=== PATIENT | female | born 1950 | race African-American/Black ===

== ENCOUNTER 2018-01-20 11:17 | Inpatient (IN) | payer OTHER ==
[~2018-01-20] VITALS: Ht 167.6 cm; Wt 83.5 kg
[2018-01-20 11:20] VITALS: BP 132/87
--- NOTE | 2018-01-20 11:49 | NUR ---
DR SANDHU AT BEDSIDE FOR PT EVALUATION
--- NOTE | 2018-01-20 11:50 | NUR ---
PATIENT PRESENTS TO ED WITH ABD PAIN W/ DIARRHEA AND NAUSEA BUT DENIES VOMITTING; DENIES FEVER X 1 WEEK . SKIN IS PINK/WARM/DRY; AAOX4 WITH EVEN AND STEADY GAITVSS; PATIENT POSITIONED FOR COMFORT; HOB ELEVATED; BEDRAILS UP X2; BED DOWN. ER MD MADE AWARE OF PT STATUS.
[2018-01-20] MEDS ORDERED: NACL 0.9% 1,000 ML IV ONE (11:53)
[2018-01-20] MEDS ORDERED: NACL 0.9% 2,000 ML IV SCH (11:53)
[2018-01-20] MEDS ORDERED: ONDANSETRON 4 MG/2 ML VIAL IVP ONE (11:55)
[2018-01-20] MEDS ORDERED: METOCLOPRAMIDE 10 MG/2 ML INJ VIAL IVP ONE (11:55)
[2018-01-20] MEDS ORDERED: diphenhydrAMINE 50 MG/ML VIAL IVP ONE (11:55)
[2018-01-20 12:13] LABS: BASOPHILS % (AUTO) 0.6 % (0.0-2.0); EOSINOPHILS % (AUTO) 0.1 % (0.0-4.0); HEMATOCRIT 41.5 % (36-48); HEMOGLOBIN 13.4 g/dL (12.0-16.0); LYMPHOCYTES # (AUTO) 0.8 K/uL (2.5-16.5); LYMPHOCYTES % (AUTO) 10.9 % (20.5-51.1); MEAN CORPUSCULAR HEMOGLOBIN 29 pg (27-31); MEAN CORPUSCULAR HGB CONC 32 g/dL (33-37); MONOCYTES # (AUTO) 0.2 K/uL (0.8-1.0); MONOCYTES % (AUTO) 3.1 % (1.7-9.3); NEUTROPHILS # (AUTO) 6.5 K/uL (1.8-7.7); NEUTROPHILS % (AUTO) 85.3 % (42.2-75.2); PLATELET COUNT (AUTO) 326 K/uL (140-450); RED BLOOD CELL COUNT(AUTO) 4.66 MIL/uL (4.20-5.40); RED CELL DISTRIBUTION WIDTH 15.3 % (11.6-13.7); WHITE BLOOD COUNT (AUTO) 7.7 K/uL (4.8-10.8)
[2018-01-20 12:26] LABS: ACETONE, SERUM NEGATIVE (NEGATIVE)
[2018-01-20 12:28] LABS: ANION GAP 13.1 (8-16); CARBON DIOXIDE 27.3 mmol/L (21-32); CREATININE 0.9 mg/dL (0.6-1.3); POTASSIUM 3.4 mmol/L (3.5-5.1)
[2018-01-20] MEDS ORDERED: MULT15LI1 GT/PO (12:28)
[2018-01-20] MEDS ORDERED: PRED20TA6 PO (12:28)
[2018-01-20] MEDS ORDERED: ZOLP10TA1 PO (12:28)
[2018-01-20] MEDS ORDERED: ACET-2619 PO (12:28)
[2018-01-20] MEDS ORDERED: DICL1GEL19 TP (12:28)
[2018-01-20] MEDS ORDERED: DOCU250S85 PO (12:28)
[2018-01-20] MEDS ORDERED: HYDR-5092 PO (12:28)
[2018-01-20] MEDS ORDERED: DILT-135 PO (12:28)
[2018-01-20] MEDS ORDERED: LID5T TP (12:28)
[2018-01-20] MEDS ORDERED: ISOS20TA13 PO (12:28)
[2018-01-20] MEDS ORDERED: HYDR1TAB PO (12:28)
[2018-01-20] MEDS ORDERED: METO25TA PO (12:28)
[2018-01-20] MEDS ORDERED: FURO-572 PO (12:28)
[2018-01-20] MEDS ORDERED: CLOP75TA55 PO (12:28)
[2018-01-20] MEDS ORDERED: FLUT1POW3 IH (12:28)
[2018-01-20] MEDS ORDERED: ACLI400A1 IH (12:28)
[2018-01-20] MEDS ORDERED: ALBU3SOL83 IH (12:28)
[2018-01-20] MEDS ORDERED: DONE5TAB6 PO (12:28)
[2018-01-20] MEDS ORDERED: ATOR40TA PO (12:28)
[2018-01-20] MEDS ORDERED: NITR0.4T2 SL (12:28)
[2018-01-20] MEDS ORDERED: FAMO-90 PO (12:28)
[2018-01-20 12:33] LABS: ALBUMIN 3.4 g/dL (3.4-5.0); PROTHROMBIN TIME 9.8 secs (10.8-13.4); TOTAL BILIRUBIN 0.7 mg/dL (0.0-1.0)
[2018-01-20 12:34] LABS: AMYLASE 59 U/L (25-115); LIPASE 137 U/L (73-393); MAGNESIUM 2.1 mg/dL (1.8-2.4)
[2018-01-20] MEDS ORDERED: DEXT 5% /NACL 0.9% 1,000 ML IV SCH (13:03)
[2018-01-20] MEDS ORDERED: ZOLPIDEM 5 MG TAB PO PRN (13:05)
[2018-01-20] MEDS ORDERED: ONDANSETRON 4 MG/2 ML VIAL IM/IVP PRN (13:05)
[2018-01-20] MEDS ORDERED: ACETAMINOPHEN 325 MG TAB PO PRN (13:05)
[2018-01-20] MEDS ORDERED: DOCUSATE SODIUM 100 MG GELCAP PO PRN (13:05)
[2018-01-20] MEDS ORDERED: KETOROLAC 15 MG/ML VIAL IVP PRN (13:05)
[2018-01-20] MEDS ORDERED: ALBUTEROL SULFATE/IPRATROPIU 3 ML SOL IH PRN (13:15)
[2018-01-20] MEDS ORDERED: DEXTROSE 50% 50 ML SYR IVP PRN (13:20)
[2018-01-20] MEDS ORDERED: INSULIN LISPRO SLIDING SCALE 100 UNITS/ML VIAL SUBQ PRN (13:20)
[2018-01-20] MEDS ORDERED: DICYCLOMINE HCL LIQUID 10 MG/5 ML UDC PO SCH (13:23)
[2018-01-20] MEDS ORDERED: LIDOCAINE VISCOUS 2% 20 ML UDC PO SCH (13:23)
[2018-01-20] MEDS ORDERED: ALUMINUM HYD/MAG/SIMETHICONE 30 ML UDC PO SCH (13:23)
[2018-01-20] MEDS ORDERED: HYDROcodone/APAP 10/325 MG 1 TAB TAB PO PRN (13:30)
[2018-01-20] MEDS ORDERED: DICLOFENAC SODIUM TP SCH (13:30)
[2018-01-20] MEDS ORDERED: ZOLPIDEM 10 MG TAB PO PRN (13:30)
[2018-01-20] MEDS ORDERED: GABA300C PO (13:41)
--- NOTE | 2018-01-20 13:44 | NUR ---
RECEIVED BEDSIDE REPORT FROM ER NURSE. PATIENT IS AWAKE, ALERT AND ORIENTEDX4. NO SIGNS OF DISTRESS ON RA. NO COMPLAINTS OF ABD PAIN AT THIS TIME. PATIENT PLACED ON FALL RISK PROTOCOL. MRSA SWAB IS DONE. VITALS WITHIN NORMAL LIMITS. SKIN IS INTACT. IV ON LT AC 24G INFUSING NS AT 100. AND R AC 22G SALINE LOCK. CLEAN, DRY AND INTACT. DR DAVALOS SAID NOT TO GIVE ORDERED 2L BOLUS D/T HX CHF. AMBULATE W ASSIST, PATIENT HAS WEAKNESS. PATIENT ONLY AMBULATES FOR BRP. BED IN LOW POSITION. CALL LIGHT WITHIN REACH. WILL CONTINUE TO MONITOR. ALLERGY BAND PLACE. PATIENT HAS RT CHEST OLGA CATH, PATIENT STATES IT IS FOR BEING A HARD STICK. ER DID NOT USE IT, NO ORDER TO USE CATH AT THIS TIME
[2018-01-20 13:50] VITALS: BP 127/70
--- NOTE | 2018-01-20 13:52 | NUR ---
Patient will be admitted to care of dr ELISE. Admited to TELE. Will go to [id number]. Belongings list completed. Report to DARWIN MANRIQUEZ.
[2018-01-20] MEDS ORDERED: PANTOPRAZOLE 40 MG INJ VIAL IVP SCH (14:00)
[2018-01-20] MEDS ORDERED: MENTHOL/METHYL 10%-15% 114 GM TUBE TP PRN (14:15)
--- NOTE | 2018-01-20 14:52 | NUR ---
PATIENT IS SLEEPING. PATIENT REFUSED GI COCKTAIL, SHE HAD A SIP AND SAID IT WAS DISGUSTING. DR DAVLAOS IS AWARE.
[2018-01-20 15:22] LABS: CHOL/HDL RATIO 1.9 (1-4.5); PHOSPHORUS 2.4 mg/dL (2.5-4.9); THYROID STIMULATING HORMONE 0.39 uIU/mL (0.34-3.74)
[2018-01-20 16:00] VITALS: BP 109/63
--- NOTE | 2018-01-20 16:00 | NUR ---
PATIENT IS SLEEPING. WILL CONTINUE TO MONITOR THE PATIENT
[2018-01-20] MEDS: BLOOD GLUCOSE MONITORING 1 DEV DEV FS SCH ×2 (17:07→20:23)
[2018-01-20] MEDS: GABAPENTIN 300 MG CAP PO SCH (17:16)
[2018-01-20] MEDS: MORPHINE SULFATE 4 MG/ML SYR IVP PRN (17:16)
[2018-01-20] MEDS: DILTIAZEM 60 MG TAB PO SCH (17:16)
--- NOTE | 2018-01-20 17:22 | NUR ---
ADMINISTERED MEDS. PATIENT TOLERATED WELL. PATIENT COMPLAINTS OF 7/10 ABD PAIN. ADMINISTERED PRN PAIN MEDS. WILL CONTINUE TO MONITOR
[2018-01-20] MEDS: ALBUTEROL SULFATE/IPRATROPIU 3 ML SOL IH SCH (18:22)
[2018-01-20] MEDS ORDERED: LIDOCAINE MPF IV ONE ×6 (18:50)
[2018-01-20] MEDS ORDERED: NACL 0.9% IV ONE ×6 (18:50)
[2018-01-20] MEDS ORDERED: POTASSIUM CHLORIDE IV ONE ×6 (18:50)
--- NOTE | 2018-01-20 19:00 | NUR ---
GAVE BEDSIDE REPORT TO BI TECHNICAL LEAD NURSE. PATIENT ENDORSED IN STABLE CONDITION.
[2018-01-20] MEDS ORDERED: KCL 20 MEQ/WATER INJ PREMIX 100 ML IV ONE (19:10)
--- NOTE | 2018-01-20 19:10 | NUR ---
RECEIVED PATIENT AWAKE RESTING ON BED. EXPLAIN PLAN OF CARE AND VERBALIZED UNDERSTANDING. FALL PRECAUTION APPLIED. CALL LIGHT WITHIN REACH. WILL CONTINUE TO MONITOR.
[2018-01-20 20:00] VITALS: BP 97/56
[2018-01-20] MEDS: DEXT 5% / NACL 0.45% 1,000 ML IV SCH (21:00)
--- NOTE | 2018-01-20 21:00 | NUR ---
SCHEDULE MEDICATION GIVEN TOLERATED WELL. BS TAKEN AND RECORDED. NO COVERAGE PER SLIDING SCALE. NO S/S OF DISTRESS NOTED AT THIS TIME. [address] ALL NEEDS ATTENDED. WILL CONTINUE TO MONITOR.
[2018-01-20] MEDS: ATORVASTATIN 20 MG TAB PO SCH (21:01)
[2018-01-21] VITALS: BP 121/65
--- NOTE | 2018-01-21 | NUR ---
SEEN PATIENT ASLEEP ON BED. V/S TAKEN AND RECORDED. ALL NEEDS ATTENDED. FALL PRECAUTION APPLIED. WILL CONTINUE TO MONITOR. NO S/ SOF DISTRESS NOTED.
[2018-01-21] MEDS: HYDROcodone/APAP 10/325 MG 1 TAB TAB PO PRN ×2 (01:15→06:34)
--- NOTE | 2018-01-21 02:00 | NUR ---
SEEN PATIENT ASLEEP ON BED. NO S/S OF DISTRESS NOTED. FALL PRECAUTION IN PLACE. ALL NEEDS ATTENDED. CALL LIGHT WITHIN REACH.
[2018-01-21 04:00] VITALS: BP 111/66
--- NOTE | 2018-01-21 04:47 | NUR ---
AM CARE DONE. ALL NEEDS ATTENDED. NO S/S OF DISTRESS NOTED AT THIS TIME. WILL CONTINUE TO MONITOR.
[2018-01-21] MEDS: DEXT 5% / NACL 0.45% 1,000 ML IV SCH ×2 (06:30→23:05)
[2018-01-21] MEDS: ALBUTEROL SULFATE/IPRATROPIU 3 ML SOL IH SCH ×4 (06:51→19:47)
[2018-01-21] MEDS: BLOOD GLUCOSE MONITORING 1 DEV DEV FS SCH ×4 (06:55→20:08)
--- NOTE | 2018-01-21 07:15 | NUR ---
AM CARE DONE. ALL NEEDS ATTENDED. NO S/S OF DISTRESS NOTED AT THIS TIME. WILL CONTINUE TO MONITOR.
--- NOTE | 2018-01-21 07:16 | NUR ---
RECEIVED BEDSIDE REPORT FROM MANAGEMENT SME NURSE. PATIENT IS AWAKE, ALERT AND ORIENTEDX4. NO SIGNS OF DISTRESS ON 2L NC. SHE IS BEDBOUND. SKIN INTACT. TELE MONITOR IN PLACE. L AC 24G INFUSING D5 1/2NS AT 60. CLEAN, DRY AND INTACT. PATIENT NPO, SIGNS POSTED. ALLERGY BAND IN PLACE. PATIENT SAID SHE WILL LET ME KNOW WHEN SHE URINATES SO I CAN GET A URINE SAMPLE, I TOLD HER IF SHE IS NOT ABLE TO I MIGHT HAVE TO DO A STRAIGHT CATH. PATIENT VERBALIZES UNDERSTANDING. PATIENT IS INCONTINENT BUT STATES SHE CAN SOMETIMES TELL US WHEN SHE USES THE RESTROOM. BED IN LOW POSITION. FALL PRECAUTIONS IN PLACE. PATIENT HAS A R CHEST PORT A CATH, NO ORDERS TO USE THE CATH. PATIENT CAME IN W IT. WILL CONTINUE TO MONITOR
[2018-01-21 07:55] VITALS: BP 121/66
[2018-01-21 08:03] LABS: CARBON DIOXIDE 25.3 mmol/L (21-32); CREATININE 0.8 mg/dL (0.6-1.3); MAGNESIUM 2.1 mg/dL (1.8-2.4); POTASSIUM 4.3 mmol/L (3.5-5.1)
[2018-01-21 08:12] LABS: T4 (THYROXINE) 9.1 ug/dL (4.5-12.0)
[2018-01-21] MEDS: GABAPENTIN 300 MG CAP PO SCH ×3 (08:55→17:57)
[2018-01-21] MEDS: MORPHINE SULFATE 4 MG/ML SYR IVP PRN ×3 (08:55→17:57)
[2018-01-21] MEDS: FUROSEMIDE 20 MG TAB PO SCH (08:56)
[2018-01-21] MEDS: CLOPIDOGREL 75 MG TAB PO SCH (08:56)
[2018-01-21] MEDS: ISOSORBIDE MONONITRATE 30 MG TABER PO SCH (08:57)
[2018-01-21] MEDS: DONEPEZIL 10 MG TAB PO SCH (08:58)
[2018-01-21] MEDS: DILTIAZEM 60 MG TAB PO SCH ×3 (08:58→17:00)
[2018-01-21] MEDS ORDERED: DILTIAZEM 120 MG CAPER PO SCH (09:00)
[2018-01-21 09:03] LABS: BASOPHILS % (AUTO) 0.5 % (0.0-2.0); EOSINOPHILS # (AUTO) 0.1 K/uL (0-0.4); HEMATOCRIT 35.6 % (36-48); HEMOGLOBIN 11.5 g/dL (12.0-16.0); LYMPHOCYTES # (AUTO) 2.5 K/uL (2.5-16.5); LYMPHOCYTES % (AUTO) 42.4 % (20.5-51.1); MEAN CORPUSCULAR HEMOGLOBIN 29 pg (27-31); MEAN CORPUSCULAR HGB CONC 32 g/dL (33-37); MEAN CORPUSCULAR VOLUME 89.4 fL (80-94); MONOCYTES # (AUTO) 0.5 K/uL (0.8-1.0); MONOCYTES % (AUTO) 9.2 % (1.7-9.3); NEUTROPHILS # (AUTO) 2.8 K/uL (1.8-7.7); NEUTROPHILS % (AUTO) 46.9 % (42.2-75.2); PLATELET COUNT (AUTO) 266 K/uL (140-450); RED BLOOD CELL COUNT(AUTO) 3.98 MIL/uL (4.20-5.40); WHITE BLOOD COUNT (AUTO) 5.9 K/uL (4.8-10.8)
[2018-01-21] MEDS: PANTOPRAZOLE 40 MG INJ VIAL IVP SCH (09:04)
[2018-01-21] MEDS: LIDOCAINE 5% 1 EA PATCH TP SCH (09:08)
[2018-01-21] MEDS: MULTIVITAMIN/MINERALS 15 ML UDBTL PO SCH (09:08)
--- NOTE | 2018-01-21 09:24 | NUR ---
ADMINISTERED MEDS. PATIENT TOLERATED WELL. WILL CONTINUE TO MONITOR THE PATIENT.
--- NOTE | 2018-01-21 09:43 | NUR ---
STRAIGHT CATH DONE. URINE SENT TO LAB.
--- NOTE | 2018-01-21 10:30 | NUR ---
HEATING PAD ON PATIENTS R KNEE
[2018-01-21 12:00] VITALS: BP 114/51
[2018-01-21 12:20] LABS: BARBITURATE, URINE NEG. ng/ml (NEG <=200); BENZODIAZEPINE, URINE NEG. ng/mL (NEG <=200); CANNABINOID, URINE NEG. ng/mL (NEG <=50); COCAINE, URINE NEG. ng/mL (NEG <=300); OPIATE, URINE POS. ng/mL (NEG <=2000); PHENCYCLIDINE SCREEN,URINE NEG. ng/mL (NEG <=25)
[2018-01-21 12:31] LABS: APPEARANCE,URINE CLEAR (CLEAR); BILIRUBIN,URINE NEGATIVE (NEGATIVE); BLOOD, URINE 1+ (NEGATIVE); COLOR,URINE YELLOW (YELLOW); LEUKOCYTE ESTERASE ,URINE NEGATIVE (NEGATIVE); NITRITE, URINE NEGATIVE (NEGATIVE); RBC,URINE 3-10 (FEW) /HPF (0-5); UGLUCOSE NEGATIVE (NEGATIVE); WBC,URINE 0-5 (RARE) /HPF (0-5)
--- NOTE | 2018-01-21 12:55 | NUR ---
ADMINISTERED MEDS INCLUDING PRN PAIN MED. PATIENT TOLERATED WELL. WILL CONTINUE TO MONITOR THE PATIENT. HEATING PAD TEMP INCREASED.
--- NOTE | 2018-01-21 14:01 | NUR ---
DR BARBOZA SAW PATIENT. SAID HE IS NOT DOING ANYTHING TO HER TODAY. SHE CAN EAT. ORDERED PATIENT A SANDWICH
--- NOTE | 2018-01-21 14:07 | NUR ---
PATIENT HAS BEEN SCREENED AND CATEGORIZED MODERATE NUTRITION RISK. PATIENT WILL BE SEEN WITHIN 3-5 DAYS OF ADMISSION. 01/23/18 01/25/18 CHARLI CANNON MBA, RD
[2018-01-21 16:00] VITALS: BP 102/58
--- NOTE | 2018-01-21 16:00 | NUR ---
PATIENT REQUESTING WATERMELON AND GRAPES, EXPLAINED TO HER SHE IS ON FULL LIQ DIET, PATIENT VERBALIZED UNDERSTANDING
[2018-01-21] MEDS ORDERED: SENNA 8.6 MG TAB PO SCH (17:00)
--- NOTE | 2018-01-21 17:15 | NUR ---
PATIENT WATCHING TV. NO SIGNS OF DISTRESS. WILL CONTINUE TO MONITOR
--- NOTE | 2018-01-21 18:00 | NUR ---
ADMINISTERED MEDS. PATIENT TOLERATED WELL. WILL CONTINUE TO MONITOR THE PATIENT. Addendum: 01/21/18 at 1813 by Maribel Willard RN LINDEN HANDLEY D/T B/P ON LOW END. DR DAVALOS SAID OK. PATIENT GETTING MORPHINE FOR PAIN AT THIS TIME
--- NOTE | 2018-01-21 19:17 | NUR ---
BEDSIDE REPORT GIVEN TO WEIGHER AND GRADER NURSE. PATIENT IN STABLE CONDITION.
--- NOTE | 2018-01-21 19:20 | NUR ---
RECEIVED PATIENT AWAKE RESTING COMFORTABLE ON BED. EXPLAINED PLAN OF CARE AND VERBALIZED UNDERSTANDING. FALL PRECAUTION APPLIED. CALL LIGHT WITHIN REACH. WILL CONTINUE TO MONITOR.
[2018-01-21 20:00] VITALS: BP 102/53
[2018-01-21] MEDS: ATORVASTATIN 20 MG TAB PO SCH (20:42)
[2018-01-21] MEDS ORDERED: AMITRIPTYLINE 10 MG TAB PO SCH (21:00)
[2018-01-21] MEDS ORDERED: LACTULOSE 20 GM/30 ML UDC PO SCH (21:00)
--- NOTE | 2018-01-21 21:00 | NUR ---
V/S TAKEN AND RECORDED. SCHEDULE MEDICATION GIVEN TOLERATED WELL. NO SIGN OF DISTRESS NOTED. ALL NEEDS ATTENDED. CALL LIGHT WITHIN REACH. DENIES PAIN AT THIS TIME. WILL CONTINUE TO MONITOR.
[2018-01-22] VITALS: BP 109/63
--- NOTE | 2018-01-22 | NUR ---
V/S TAKEN AND RECORDED. ALL NEEDS ATTENDED. NO S/S OF DISTRESS NOTED AT THIS TIME. WILL CONTINUE TO MONITOR.
--- NOTE | 2018-01-22 02:00 | NUR ---
DENIES PAIN. [address] NO SIGN OF DISTRESS NOTED.
[2018-01-22] MEDS: HYDROcodone/APAP 10/325 MG 1 TAB TAB PO PRN ×2 (03:18→12:42)
[2018-01-22 04:00] VITALS: BP 113/64
--- NOTE | 2018-01-22 04:05 | NUR ---
V/S TAKEN AND RECORDED. PATIENT ASKED TO APPLY HEAT PAD ON HER RIGHT LEG AND APPLIED BENGAY. WILL CONTINUE TO MONITOR.
--- NOTE | 2018-01-22 07:10 | NUR ---
ENDORSEMENT GIVEN TO AM SHIFT RN AT BEDSIDE FOR CONTINUITY OF CARE. PATIENT IN STABLE CONDITION.
--- NOTE | 2018-01-22 07:30 | NUR ---
RECEIVED BEDSIDE REPORT FROM DRUM OPERATOR RN AT BEDSIDE. PATIENT IS AAOX4. NO S/S OF RESPIRATORY DISTRESS ON 2L O2 VIA NC. NO C/O PAIN AT THIS TIME. IV ON LT AC 24G INFUSING D5 1/2NS AT 60ML/HR, ASYMPTOMATIC. NO EDEMA NOTED. PT AMBULATE BRP W/ ASSIST. BED IN LOWEST POSITION. CALL LIGHT WITHIN REACH. WILL CONTINUE TO MONITOR.
[2018-01-22] MEDS: BLOOD GLUCOSE MONITORING 1 DEV DEV FS SCH ×4 (07:34→21:45)
[2018-01-22 08:00] VITALS: BP 104/54
[2018-01-22 08:27] LABS: BASOPHILS # (AUTO) 0.1 K/uL (0.00-0.22); BASOPHILS % (AUTO) 1.2 % (0.0-2.0); EOSINOPHILS # (AUTO) 0.1 K/uL (0-0.4); EOSINOPHILS % (AUTO) 1.4 % (0.0-4.0); HEMATOCRIT 41.4 % (36-48); HEMOGLOBIN 13.2 g/dL (12.0-16.0); LYMPHOCYTES # (AUTO) 2.8 K/uL (2.5-16.5); LYMPHOCYTES % (AUTO) 43.4 % (20.5-51.1); MEAN CORPUSCULAR HEMOGLOBIN 29 pg (27-31); MEAN CORPUSCULAR HGB CONC 32 g/dL (33-37); MEAN CORPUSCULAR VOLUME 89.8 fL (80-94); MONOCYTES # (AUTO) 0.4 K/uL (0.8-1.0); MONOCYTES % (AUTO) 5.9 % (1.7-9.3); NEUTROPHILS # (AUTO) 3.1 K/uL (1.8-7.7); NEUTROPHILS % (AUTO) 48.1 % (42.2-75.2); PLATELET COUNT (AUTO) 285 K/uL (140-450); RED BLOOD CELL COUNT(AUTO) 4.61 MIL/uL (4.20-5.40); RED CELL DISTRIBUTION WIDTH 15.5 % (11.6-13.7); WHITE BLOOD COUNT (AUTO) 6.4 K/uL (4.8-10.8)
[2018-01-22] MEDS: DILTIAZEM 60 MG TAB PO SCH ×3 (09:00→16:41)
[2018-01-22] MEDS: MULTIVITAMIN/MINERALS 15 ML UDBTL PO SCH (09:00)
--- NOTE | 2018-01-22 09:00 | NUR ---
C/O NASAL DRYNESS WITH SUPPLEMENTAL OXYGEN USE ADDED HUMIDIFIER
[2018-01-22 09:19] LABS: ANION GAP 8.6 (8-16); CREATININE 0.9 mg/dL (0.6-1.3); POTASSIUM 3.6 mmol/L (3.5-5.1)
[2018-01-22] MEDS: PANTOPRAZOLE 40 MG INJ VIAL IVP SCH (09:35)
[2018-01-22] MEDS: DONEPEZIL 10 MG TAB PO SCH (09:35)
[2018-01-22] MEDS: ISOSORBIDE MONONITRATE 30 MG TABER PO SCH (09:36)
[2018-01-22] MEDS: CLOPIDOGREL 75 MG TAB PO SCH (09:36)
[2018-01-22] MEDS: GABAPENTIN 300 MG CAP PO SCH ×3 (09:36→16:12)
[2018-01-22] MEDS: FUROSEMIDE 20 MG TAB PO SCH (09:37)
[2018-01-22] MEDS: LIDOCAINE 5% 1 EA PATCH TP SCH (09:38)
--- NOTE | 2018-01-22 09:45 | NUR ---
PT STATED SHE HAVING DIARRHEA, HELD LACTULOSE AND SENNA FOR NOW, WILL NOTIFY DR BARBOZA AND RESIDENT MD.
[2018-01-22] MEDS: MORPHINE SULFATE 4 MG/ML SYR IVP PRN ×3 (09:51→18:39)
[2018-01-22] MEDS ORDERED: NACL 0.9% 1,000 ML IV SCH (10:55)
[2018-01-22] MEDS ORDERED: ACETAMINOPHEN 325 MG TAB PO SCH (11:00)
[2018-01-22] MEDS ORDERED: DOCUSATE SODIUM 100 MG GELCAP PO PRN (11:00)
[2018-01-22] MEDS ORDERED: DEXTROSE 50% 50 ML SYR IVP PRN (11:40)
[2018-01-22] MEDS ORDERED: INSULIN LISPRO SLIDING SCALE 100 UNITS/ML VIAL SUBQ PRN (11:40)
[2018-01-22] MEDS ORDERED: fentaNYL 0.05 MG/ML VIAL ONE (11:53)
[2018-01-22] MEDS ORDERED: diphenhydrAMINE 50 MG/ML VIAL ONE (11:53)
[2018-01-22] MEDS ORDERED: MIDAZOLAM 2 MG/2 ML VIAL ONE (11:53)
[2018-01-22 12:00] VITALS: BP 110/75
[2018-01-22] MEDS ORDERED: MIDAZOLAM 2 MG/2 ML VIAL IVP ONE (12:10)
[2018-01-22] MEDS ORDERED: fentaNYL 0.05 MG/ML VIAL IVP ONE (12:10)
--- NOTE | 2018-01-22 12:34 | NUR ---
CALLED [facility] AND SPOKE WITH THANH IN ADMISSIONS AND SHE STATED THAT PT IS ON A 7 DAY BED HOLD AND IS ELIGIBLE FOR RETURN ON DISCHARGE. STATED THAT PT IS USUALLY AMBULATORY AND ALERT BUT DOES HAVE DAYS WHERE SHE DOESN'T WANT TO GET UP AND PARTICIPATE IN ACTIVITIES.
--- NOTE | 2018-01-22 12:45 | NUR ---
PT CAME BACK FROM EGD. EGD WAS NORMAL. PT ON CARDIAC DIET, WILL ORDER LUNCH TRAY.
--- NOTE | 2018-01-22 12:57 | NUR ---
CM NOTE FAXED ORDER FOR SNF EVAL FOR IV ANTIBIOTIC AND PT, CLINICAL PACKET INCLUDING MICROS AND PT EVAL TO [facility] [phone] ATTN: THANH HODGE# [phone] PATIENT HAS SECONDARY IEHP. PER [employer] RYANN DYER, FAX FACESHEET TO [facility] SO THEY CAN GENERATE AN AUTH FOR TRANSPORTATION WHEN GOING TO SNF
--- NOTE | 2018-01-22 13:30 | NUR ---
PATIENT WITH LUNCH TRAY AT THIS TIME REQUEST HHN THERAPY IN 5-10 MINS NO SOB NOTED
[2018-01-22] MEDS: ALBUTEROL SULFATE/IPRATROPIU 3 ML SOL IH SCH ×2 (13:48→20:15)
--- NOTE | 2018-01-22 14:26 | NUR ---
CM NOTE PER DR. LARA, DC PLAN IS FOR SNF FOR PHYSICAL THERAPY AND NO MORE NEED FOR IV ANTIBIOTIC. [facility] ATTN[facility]. PER THANH OF [facility] THEY CAN TAKE PATIENT WHEN READY FOR DISCHARGE. DR. LARA AWARE. PER [facility] RYANN DYER, IF PATIENT GOING TO SNF, FOR [facility] AUTH# [id number].
[2018-01-22 16:00] VITALS: BP 94/62
[2018-01-22] MEDS: MUPIROCIN CA NASAL 2% 1GM TUBE NS SCH (16:12)
[2018-01-22] MEDS: CHLORHEXADINE GLUC 2% CLOTH TP SCH (16:15)
[2018-01-22] MEDS ORDERED: BLOOD GLUCOSE MONITORING 1 DEV DEV FS SCH (16:30)
--- NOTE | 2018-01-22 16:35 | NUR ---
PT WANTS POTATO CHIPS FOR NOW, TALKED TO DR MARCO MD STATED OK FOR THIS ONE TIME.
--- NOTE | 2018-01-22 17:30 | NUR ---
PT IS HAVING US BLE. NO S/S OF DISTRESS AT THIS TIME.
--- NOTE | 2018-01-22 18:00 | NUR ---
TRANSFERRED PT TO RM 116. MOVED ALL PT'S BELONGINGS AND K PAD. PT IS ON 2L O2. NO S/S OF DISTRESS AT THIS TIME.
--- NOTE | 2018-01-22 19:34 | NUR ---
ENDORSED PT TO GI TECHNICIAN RN. PT IN STABLE CONDITION.
--- NOTE | 2018-01-22 19:35 | NUR ---
RECEIVED PT FROM KRISTYN GRANADOS PT AAOX4 ON BEDREST ON TELEMETRY SR, IV ON LEFT AC INFUSING WELL , ON 04 21 LTS VIA NC, NOT DISTRESS NOTED
[2018-01-22 20:00] VITALS: BP 97/54
[2018-01-22] MEDS: LORazepam 2 MG/ML VIAL IM/IVP PRN (21:42)
[2018-01-22] MEDS: LACTULOSE 20 GM/30 ML UDC PO SCH (21:47)
[2018-01-22] MEDS: SUCRALFATE 1 GM TAB PO SCH (21:47)
[2018-01-22] MEDS: AMITRIPTYLINE 25 MG TAB PO SCH (21:48)
[2018-01-22] MEDS: ATORVASTATIN 20 MG TAB PO SCH (21:48)
--- NOTE | 2018-01-22 22:00 | NUR ---
LINEN CHANGED PT INCONTINENT REPOSITIONED ON TELEMETRY SR
[2018-01-23] VITALS: BP 111/70
--- NOTE | 2018-01-23 01:30 | NUR ---
PT SLEEPING WELL ON TELEMETRY SR REPOSITIONED Q2H
[2018-01-23 04:00] VITALS: BP 117/65
--- NOTE | 2018-01-23 04:00 | NUR ---
SPONGE BTH GIVEN LINEN CHANGED ON TELE SR, REPOSITIONED Q2H
--- NOTE | 2018-01-23 06:00 | NUR ---
BLOOD SUGAR TEST 109
[2018-01-23] MEDS: BLOOD GLUCOSE MONITORING 1 DEV DEV FS SCH ×4 (06:01→21:08)
[2018-01-23] MEDS: MORPHINE SULFATE 4 MG/ML SYR IVP PRN ×4 (06:04→20:41)
[2018-01-23] MEDS ORDERED: PNEUMOCOCCAL VACCINE 23 MCG/0.5 ML VIAL IMVAC PRN (06:30)
--- NOTE | 2018-01-23 06:36 | NUR ---
AFTER PAIN MEDIC GIVEN PT SLEEP WELL , NOT DISTRESS NOTED ON TELE SR
[2018-01-23] MEDS: ALBUTEROL SULFATE/IPRATROPIU 3 ML SOL IH SCH ×3 (06:53→19:24)
[2018-01-23] MEDS: SUCRALFATE 1 GM TAB PO SCH ×2 (07:00→20:47)
[2018-01-23 07:33] LABS: BASOPHILS % (AUTO) 0.8 % (0.0-2.0); EOSINOPHILS # (AUTO) 0.1 K/uL (0-0.4); EOSINOPHILS % (AUTO) 1.9 % (0.0-4.0); HEMATOCRIT 35.3 % (36-48); HEMOGLOBIN 11.5 g/dL (12.0-16.0); LYMPHOCYTES # (AUTO) 1.7 K/uL (2.5-16.5); LYMPHOCYTES % (AUTO) 30.2 % (20.5-51.1); MEAN CORPUSCULAR HEMOGLOBIN 29 pg (27-31); MEAN CORPUSCULAR HGB CONC 33 g/dL (33-37); MEAN CORPUSCULAR VOLUME 88.8 fL (80-94); MONOCYTES # (AUTO) 0.4 K/uL (0.8-1.0); MONOCYTES % (AUTO) 7.2 % (1.7-9.3); NEUTROPHILS # (AUTO) 3.3 K/uL (1.8-7.7); NEUTROPHILS % (AUTO) 59.9 % (42.2-75.2); PLATELET COUNT (AUTO) 266 K/uL (140-450); RED BLOOD CELL COUNT(AUTO) 3.98 MIL/uL (4.20-5.40); RED CELL DISTRIBUTION WIDTH 14.9 % (11.6-13.7); WHITE BLOOD COUNT (AUTO) 5.5 K/uL (4.8-10.8)
[2018-01-23 07:58] LABS: ANION GAP 10.7 (8-16); CARBON DIOXIDE 28.2 mmol/L (21-32); CREATININE 0.7 mg/dL (0.6-1.3); POTASSIUM 3.9 mmol/L (3.5-5.1)
[2018-01-23 08:00] VITALS: BP 112/65
[2018-01-23 08:00] LABS: MAGNESIUM 1.8 mg/dL (1.8-2.4); PHOSPHORUS 3.2 mg/dL (2.5-4.9)
[2018-01-23] MEDS: DILTIAZEM 60 MG TAB PO SCH ×3 (08:54→17:00)
[2018-01-23] MEDS: GABAPENTIN 300 MG CAP PO SCH ×3 (08:54→17:00)
[2018-01-23] MEDS: FUROSEMIDE 20 MG TAB PO SCH (08:55)
[2018-01-23] MEDS: CLOPIDOGREL 75 MG TAB PO SCH (08:55)
[2018-01-23] MEDS: predniSONE 20 MG TAB PO SCH (08:55)
[2018-01-23] MEDS: ISOSORBIDE MONONITRATE 30 MG TABER PO SCH (08:56)
[2018-01-23] MEDS: MULTIVITAMIN/MINERALS 15 ML UDBTL PO SCH (08:57)
[2018-01-23] MEDS: LIDOCAINE 5% 1 EA PATCH TP SCH (09:00)
[2018-01-23] MEDS: DONEPEZIL 10 MG TAB PO SCH (09:00)
[2018-01-23 12:00] VITALS: BP 115/68
[2018-01-23] MEDS ORDERED: ACETAMINOPHEN 325 MG TAB PO PRN (12:39)
--- NOTE | 2018-01-23 13:34 | NUR ---
PT SLEEPING WITH NO SIGNS OF DISTRESS NOTED AT THIS TIME Addendum: 01/23/18 at 1337 by Nicole Clay RT NO HHN GIVEN AT THIS TIME
[2018-01-23] MEDS: HYDROcodone/APAP 10/325 MG 1 TAB TAB PO PRN ×3 (14:06→23:13)
[2018-01-23 16:00] VITALS: BP 109/69
[2018-01-23] MEDS: MUPIROCIN CA NASAL 2% 1GM TUBE NS SCH (16:00)
[2018-01-23] MEDS: CHLORHEXADINE GLUC 2% CLOTH TP SCH (16:00)
--- NOTE | 2018-01-23 18:26 | NUR ---
reevaluation of pain med given morphine 1mg at 1600 pain 8/10 and 1700 pain level 5/10
--- NOTE | 2018-01-23 19:40 | NUR ---
RECEIVED BEDSIDE REPORT. PT A&O X4. PT IS ON 2L O2 VIA NC. NO SIGNS OF DISTRESS NOTED. PT WITH LEFT AC 24 G SALINE LOCK. IV IS PATENT AND ASYMPTOMATIC. PT HAS CHRONIC BACK PAIN WILL MONITOR. PT ON CONTACT ISOLATION. VITAL SIGNS ARE WITHIN NORMAL LIMITS. SAFETY MEASURES ARE IN PLACE. CALL LIGHT WITHIN REACH.
[2018-01-23 20:00] VITALS: BP 118/63
--- NOTE | 2018-01-23 20:41 | NUR ---
DUE MEDIATIONS GIVEN. PT TOLERATED WELL. VITAL SIGNS ARE WITHIN NORMAL LIMITS WILL CONTINUE TO MONITOR. CALL LIGHT WITHIN REACH.
[2018-01-23] MEDS: AMITRIPTYLINE 25 MG TAB PO SCH (20:48)
[2018-01-23] MEDS: ATORVASTATIN 20 MG TAB PO SCH (20:48)
[2018-01-23] MEDS: LACTULOSE 20 GM/30 ML UDC PO SCH (20:53)
--- NOTE | 2018-01-23 22:45 | NUR ---
PT RESTING COMFORTABLY IN BED
[2018-01-24] VITALS: BP 113/66
[2018-01-24] MEDS: MORPHINE SULFATE 4 MG/ML SYR IVP PRN (03:00)
[2018-01-24 04:00] VITALS: BP 122/71
--- NOTE | 2018-01-24 04:34 | NUR ---
PT SLEEPING COMFORTABLY IN BED. NO DISTRESS NOTED. SAFETY MEASURES ARE IN PLACE.
[2018-01-24] MEDS: SUCRALFATE 1 GM TAB PO SCH (06:00)
[2018-01-24] MEDS: BLOOD GLUCOSE MONITORING 1 DEV DEV FS SCH ×2 (06:01→11:19)
[2018-01-24] MEDS ORDERED: PANTOPRAZOLE 40 MG TABEC PO SCH (06:30)
[2018-01-24 06:50] LABS: HEMATOCRIT 37.9 % (36-48); HEMOGLOBIN 12.3 g/dL (12.0-16.0); MEAN CORPUSCULAR HEMOGLOBIN 29 pg (27-31); MEAN CORPUSCULAR HGB CONC 32 g/dL (33-37); MEAN CORPUSCULAR VOLUME 89.4 fL (80-94); PLATELET COUNT (AUTO) 284 K/uL (140-450); RED BLOOD CELL COUNT(AUTO) 4.24 MIL/uL (4.20-5.40); RED CELL DISTRIBUTION WIDTH 15.1 % (11.6-13.7); WHITE BLOOD COUNT (AUTO) 4.5 K/uL (4.8-10.8)
[2018-01-24] MEDS: ALBUTEROL SULFATE/IPRATROPIU 3 ML SOL IH SCH ×2 (06:51→13:37)
[2018-01-24 07:03] LABS: ANION GAP 9.6 (8-16); CARBON DIOXIDE 30.9 mmol/L (21-32); CREATININE 0.8 mg/dL (0.6-1.3); POTASSIUM 4.5 mmol/L (3.5-5.1)
[2018-01-24 07:06] LABS: MAGNESIUM 1.8 mg/dL (1.8-2.4); PHOSPHORUS 3.8 mg/dL (2.5-4.9)
--- NOTE | 2018-01-24 07:10 | NUR ---
ENDORSED PT TO DAY SHIFT. PT STABLE CONDITION. SAFETY MEASURES IN PLACE WILL CONTINUE TO MONITOR.
[2018-01-24 07:40] LABS: EOSINOPHILS % (MANUAL) 6 % (0-4); LYMPHOCYTES % (MANUAL) 34 % (20-46); MONOCYTES % (MANUAL) 10 % (5-12)
--- NOTE | 2018-01-24 07:40 | NUR ---
PATIENT WAS SLEEPING COMFORTABLY, EASILY AROUSABLE BY NAME. RESPIRATION EVEN, UNLABOR ON 2L NC. SKIN DRY AND WARM. IV PATENT AND INTACT. COMPLAINED OF NAUSEA, WILL MEDICATE PER ORDER. DENIED PAIN AT THIS TIME. PLAN OF CARE WAS DISCUSSED WITH PATIENT. BED AT LOW POSITION, SIDE RAILS UP. CALL LIGHT WITHIN REACH
[2018-01-24 08:00] VITALS: BP 129/63
[2018-01-24] MEDS: FUROSEMIDE 20 MG TAB PO SCH (08:18)
[2018-01-24] MEDS: DONEPEZIL 10 MG TAB PO SCH (08:18)
[2018-01-24] MEDS: GABAPENTIN 300 MG CAP PO SCH ×2 (08:18→12:13)
[2018-01-24] MEDS: DILTIAZEM 60 MG TAB PO SCH ×2 (08:19→12:14)
[2018-01-24] MEDS: ISOSORBIDE MONONITRATE 30 MG TABER PO SCH (08:19)
[2018-01-24] MEDS: predniSONE 20 MG TAB PO SCH (08:19)
[2018-01-24] MEDS: LORazepam 2 MG/ML VIAL IM/IVP PRN (08:20)
--- NOTE | 2018-01-24 08:30 | NUR ---
PATIENT WAS AWAKE, ALERT. RESPIRATION EVEN, UNLABOR ON ROOM AIR. PATIENT COMPLAINED OF ANXIETY, MEDS WERE GIVEN PER ORDER. PERINEAL CARE WAS GIVEN. CALL LIGHT WITHIN REACH
[2018-01-24] MEDS ORDERED: PANT40EC28 PO (08:32)
[2018-01-24] MEDS: CLOPIDOGREL 75 MG TAB PO SCH (08:48)
[2018-01-24] MEDS: LIDOCAINE 5% 1 EA PATCH TP SCH (08:49)
[2018-01-24] MEDS: MULTIVITAMIN/MINERALS 15 ML UDBTL PO SCH (08:51)
--- NOTE | 2018-01-24 10:10 | NUR ---
CM NOTE RECEIVED ORDER [facility] [address] [facility] PH# [phone] PATIENT WILL BE PICKED UP AT 1:45 PM [facility]ING TO [facility] LILY GRANADOS AWARE
--- NOTE | 2018-01-24 10:34 | NUR ---
REPORT WAS GIVEN TO RN AT [facility]. UNABLE TO REACH OR LEAVE VOICEMAIL FOR PATIENT'S SISTER MALA
[2018-01-24] MEDS: HYDROcodone/APAP 10/325 MG 1 TAB TAB PO PRN (12:14)
--- NOTE | 2018-01-24 12:15 | NUR ---
PATIENT WAS AWAKE, ALERT. RESPIRATION EVEN, UNLABOR ON 2L NC. COMPLAINED OF BACK PAIN 6/10. NO DISTRESS NOTED. MEDS WERE GIVEN PER ORDER. CALL LIGHT WITHIN REACH. PERINEAL CARE WAS GIVEN
--- NOTE | 2018-01-24 13:34 | NUR ---
DISCHARGE INSTRUCTION WAS GIVEN AND EXPLAINED TO THE PATIENT. PATIENT VERBALIZED UNDERSTANDING. IV WAS REMOVED, CATHETER INTACT, NO ACTIVE BLEEDING SEEN.
--- NOTE | 2018-01-24 14:07 | NUR ---
PATIENT WAS AWAKE, ALERT. RESPIRATION EVEN, UNLABOR ON ROOM AIR. NO DISTRESS NOTED AT THIS TIME. CALL LIGHT WITHIN REACH
--- NOTE | 2018-01-24 14:30 | NUR ---
REPORT WAS GIVEN AT BEDSIDE TO EMT. PATIENT IS STABLE AT THIS TIME. ALL BELONGINGS WERE TAKEN WITH THE PATIENTS.
== END 2018-01-24 14:30 | DRG 392 ==
LOC: MED 11:17 → MTU 13:11
PROVIDERS: ADMIT Family Medicine; ATTEND Family Medicine
PROC: 0DB68ZX Excision of Stomach, Via Natural or Artificial Opening Endoscopic, Diagnostic (ICD-10-PCS; principal; 2018-01-22 11:20)
PROC: 3E0234Z Introduction of Serum, Toxoid and Vaccine into Muscle, Percutaneous Approach (ICD-10-PCS; 2018-01-23)
DX: K52.9 Noninfective gastroenteritis and colitis, unspecified (principal); K57.90 Diverticulosis of intestine, part unspecified, without perforation or abscess without bleeding; E87.6 Hypokalemia; I34.1 Nonrheumatic mitral (valve) prolapse; E66.9 Obesity, unspecified; I25.10 Atherosclerotic heart disease of native coronary artery without angina pectoris; J44.9 Chronic obstructive pulmonary disease, unspecified; M19.90 Unspecified osteoarthritis, unspecified site; I50.9 Heart failure, unspecified; I11.0 Hypertensive heart disease with heart failure; G89.29 Other chronic pain; M54.9 Dorsalgia, unspecified; E86.0 Dehydration; F03.90 Unspecified dementia, unspecified severity, without behavioral disturbance, psychotic disturbance, mood disturbance, and anxiety; N28.1 Cyst of kidney, acquired; E11.65 Type 2 diabetes mellitus with hyperglycemia; Z90.710 Acquired absence of both cervix and uterus; Z23 Encounter for immunization; Z88.6 Allergy status to analgesic agent; Z88.8 Allergy status to other drugs, medicaments and biological substances; Z79.02 Long term (current) use of antithrombotics/antiplatelets; Z79.899 Other long term (current) drug therapy; I25.2 Old myocardial infarction; Z90.89 Acquired absence of other organs; Z83.3 Family history of diabetes mellitus; Z87.891 Personal history of nicotine dependence; Z68.29 Body mass index [BMI] 29.0-29.9, adult; Z86.73 Personal history of transient ischemic attack (TIA), and cerebral infarction without residual deficits
CPT/HCPCS: 36415; 36600; 71045; 80048; 80053; 80305; 81001; 82009; 82140; 82150; 82803; 82948; 83036; 83605; 83615; 83690; 83735; 83880; 84100; 84436; 84443; 84484; 85025; 85610; 85730; 86677; 87040; 87081; 90732; 93925; 93970; 94640; 96361; 96374; 96375; 97110; 97116; 97530; 99285; C1758; C9113; J1200; J1644; J1815; J2060; J2250; J2270; J2405; J2765; J3010; J3480; J7030; J7512; J7620; Q0092; Q0163